=== PATIENT | female | born 1990 | race Hispanic/Latino ===

== ENCOUNTER 2017-03-28 14:49 | Inpatient (IN) | payer MEDICAID, SELFPAY ==
--- NOTE | 2017-03-28 17:43 | ULT ---
OB ULTRASOUND: 03/28/17 HISTORY: Pelvic pain. Real time images of the pelvis were obtained transabdominally. These show a single viable intrauterin e . heart rate of 163 bpm. Gestational sac measurements are 4.7 cm, corresponding to 1 0 weeks, 2 days. [place] to rump length measurements 3.9 cm, corresponding to 10 weeks, 6 days. The right adnexa is unremarkable. The left ovary is not visualized. No subchorionic bleed is visualized. DOPPLER EVALUATION WITH SPECTRAL ANALYSIS: Normal flow is shown to the right ovary. IMPRESSION: Single viable intrauterine of 10 weeks, 4 days with estimated date of delivery of 10/20/17. POS: [facility]
[2017-03-28 18:40] LABS: Bilirubin Negative (Negative); Blood, Urine Trace (Negative); Clarity CLEAR (Clear); Glucose, Urine (Dipstick) >=1000 mg/dL (Negative); Leukocyte Moderate (Negative); Nitrite Negative (Negative); Protein, Urine (Dipstick) Negative (Neg-Trace); Specific Gravity, Urine 1.012 (1.002-1.036); pH, Urine 6.5 (5.0-9.0)
[2017-03-28 18:45] LABS: Bacteria/HPF None Seen HPF (None Seen); Hyaline Casts/LPF 0-3 HYALINE CAST LPF (0-3 Hyaline); Pathc Cast-AUWi Flag 0.13 (0-2.49); RBC/HPF 0-3 HPF (0-3); WBC/HPF 21-50 HPF (0-3)
[2017-03-28 19:04] LABS: Transitional Epithelial 0-3 HPF (0-3)
[2017-03-28] MEDS ORDERED: cefTRIAXone\\ROCEPHIN 1 GM in Sodium Chloride 0.9% 100 ML IVPB SCH (19:38)
[2017-03-28 20:04] LABS: ALT (SGPT) 11 U/L (8-55); AST (SGOT) 14 U/L (5-34); Albumin 3.4 g/dL (3.5-5.0); Alkaline Phosphatase 56 U/L (40-150); Anion Gap 10 mmol/L (10-20); BUN (Urea Nitrogen) 5 mg/dL (7.0-18.7); Bilirubin, Total 0.6 mg/dL (0.2-1.2); Calc. Creatinine Clearance 0 mL/min (70-130); Calcium 9.1 mg/dL (7.8-10.44); Carbon Dioxide 25 mmol/L (22-29); Chloride 107 mmol/L (98-107); Estimated GFR-MDRD Greater than 90; Globulin 3.1 g/dL (2.4-3.5); Glucose 92 mg/dL (70-105); Protein, Total 6.5 g/dL (6.0-8.3); Sodium 138 mmol/L (136-145)
[2017-03-28 20:20] VITALS: BMI 34.0
[2017-03-28] MEDS: Sodium Chloride 0.9% 1,000 ML IV SCH (20:29)
[2017-03-28] MEDS: Acetaminophen 325 MG TAB PO PRN (22:21)
[2017-03-29] MEDS: Dextromethorphan Polistirex 30 MG/5 ML UDCUP PO PRN ×2 (00:50→14:21)
--- NOTE | 2017-03-29 01:02 | HP ---
DATE OF ADMISSION: 03/28/2017 CHIEF COMPLAINT: Back pain. HISTORY OF PRESENT ILLNESS: This is a 27-year-old female who is a at 10 weeks gestational age, who presented with 3-day history of generalized malaise, right-sided back pain and intermittent fever and chills for which she was seen outside ED. At that time, she was diagnosed with sepsis secondary to urinary tract infection with a positive UA, as well as leukocytosis and tachycardia, and was transferred to our facility. Vancomycin and Rocephin were started in the ED. She was given a bolus of 2 liters and admitted to our service. She is currently still complaining of chills and some tiredness, but otherwise denies chest pain, shortness of breath, nausea, vomiting, dysuria, urgency, vaginal bleeding, loss of fluid, contractions, or abdominal pain. PAST MEDICAL HISTORY: Noncontributory. PAST SURGICAL HISTORY: Three C-sections. ALLERGIES: No known drug allergies. MEDICATIONS: None. SOCIAL HISTORY: Denies tobacco, ethanol, or drug use. FAMILY HISTORY: Noncontributory. PHYSICAL EXAMINATION: VITAL SIGNS: Include blood pressure 121/62, pulse 107, respirations 18, temperature 98.2, satting 98% on room air. GENERAL: She is in no acute distress, resting comfortably in bed. HEENT: Eyes; no icterus or injection. Pupils equal, round, and reactive to light. Pinna is normal. Nares patent without rhinorrhea. Moist mucous membranes. No oropharyngeal erythema. CARDIOVASCULAR: Tachycardic, regular rhythm without murmur. No peripheral edema. RESPIRATORY: No increased work of breathing. Clear to auscultation bilaterally without wheezes, rales, or rhonchi. GASTROINTESTINAL: Bowel sounds positive. Nontender to palpation. No guarding or rigidity. BACK: She does have right CVA tenderness. No left CVA tenderness. GENITOURINARY: Deferred. MUSCULOSKELETAL: No deformity, contracture, or bruising. No tenderness to palpation or joint effusion. SKIN: Warm and dry without rash. NEUROLOGICAL: Cranial nerves II through XII are intact, symmetric. Motor is 5/ 5 in upper and lower extremities. Sensation intact to light touch in upper and lower extremities. PSYCHIATRIC: She is alert and oriented x3. Appropriate insight. Mood and affect normal for current medical condition. LABORATORY DATA: Include a leukocytosis of 17 by report. She has a CMP that is relatively normal. A total beta hCG of 150,000. Urine includes greater than 1000 glucose, trace blood, moderate leukocyte esterase, 250 white blood cells, and 4-6 squamous epithelial cells, had been told by outside report that she had positive nitrites, we will confirm. A ultrasound demonstrated a single viable IUP at 10 weeks and 4 days, estimated delivery date of 2017. By the two criteria given, we should probably going that she is 10 weeks and 6 days since that was a crown rump length measurement. ASSESSMENT AND PLAN: A 27-year-old female at 10 weeks and 6 days with; 1. Sepsis secondary to urinary tract infection. We will continue Rocephin, discontinue vancomycin. Await urine culture. She has no risk factors for resistances at this point. She received a bolus and can receive maintenance IV fluids overnight with discontinuation in the morning if she is doing well. Acetaminophen for pain control. We will add her on p.r.n. morphine if necessary. 2. Urinary tract infection, see above. 3. . She has high risk related to current medical complications as well as 3 previous cesareans. She also has been taking Aleve for the pain for the last several days and now she has exposure to nonsteroidal anti- inflammatory drugs in first trimester. 4. Gastrointestinal prophylaxis with diet. 5. Deep venous thrombosis prophylaxis with sequential compression devices. MTDD
[2017-03-29] MEDS: Sodium Chloride 0.9% 1,000 ML IV SCH ×3 (05:04→22:11)
[2017-03-29] MEDS: Acetaminophen 325 MG TAB PO PRN ×3 (05:13→20:05)
--- NOTE | 2017-03-29 06:18 | HP-2 ---
CODE STATUS: FULL CODE. PRIMARY CARE PHYSICIAN: Dr. Day in [facility] call. ATTENDING: Maninder Gerber MD RESIDENT: Ramses Marrufo MD HISTORIAN: The patient. TIME AND DATE OF SERVICE: 1845 hours on 03/28/2017 CHIEF COMPLAINT: Flank pain. HISTORY OF PRESENT ILLNESS: Brenda James is a 27-year-old female -0-0- 3 at approximately 10 weeks gestational age. She was transferred from [place] , sent over for a 2-day history of right flank pain, over the last 24 hours of right flank pain has worsened and the patient has also had chills and weakness. She denies any nausea or vomiting. She has tried Aleve for the pain, and this has given her some relief. The patient does not have an county or city auditor at this time and she denies any abdominal pain, vaginal bleeding or discharge. She also denies any dysuria or increased urinary frequency. Her last menstrual period was 01/24/2017. In the ER, the patient received acetaminophen, Rocephin , vancomycin, 1-liter bolus of normal saline and also had blood and urine cultures done in [place]. PAST MEDICAL HISTORY: None. PAST SURGICAL HISTORY: section x3. ALLERGIES: No known drug allergies. MEDICATIONS: None. FAMILY HISTORY: Noncontributory. SOCIAL HISTORY: The patient denies alcohol, tobacco, or drug use. REVIEW OF SYSTEMS: A 12-point review of systems including general, eyes, ENT, respiratory, CV, GI, , skin, musculoskeletal, neuro, and psych were all unremarkable with the exception of what was stated in the HPI. PHYSICAL EXAMINATION: VITAL SIGNS: Blood pressure 110/62, pulse 108, respiratory rate 62, temperature 98.0, pulse ox 97% on room air, current weight 81 kilograms. GENERAL: The patient is alert and oriented x4, in no acute distress, well- developed, well-nourished, and appropriately interactive. EYES: Pupils are equal, round, and reactive to light and accommodation. Extraocular muscles are intact. Conjunctivae within normal limits. ENT: Tympanic membranes pearly meier without bulging or erythema. Nasal mucosa and oropharynx within normal limits. NECK: Supple without lymphadenopathy or thyromegaly. CARDIOVASCULAR: Regular rate and rhythm. No murmurs or gallops. Radial and pedal pulses equal bilaterally. RESPIRATORY: Normal effort. No retractions. LUNGS: Clear to auscultation bilaterally. SKIN: Warm and dry without cyanosis or lesions. ABDOMEN: Soft, nontender. Bowel sounds x4. No mass or distention. Exquisite right CVA tenderness. No left CVA tenderness. EXTREMITIES: No clubbing, cyanosis, or edema. MUSCULOSKELETAL: Structure and tone within normal limits. Full range of motion. NEUROLOGIC: No focal deficits. Sensation within normal limits. PSYCHIATRIC: Appropriate. LABORATORY DATA: White blood cell count 17.01, hemoglobin 12.2, hematocrit 36.7 , MCV 86, 90% neutrophils, platelets 161. Beta hCG was positive. Influenza A and B were negative. UA in [place] was significant for dark and cloudy urine , moderate blood, protein 100, small leukocyte esterase, positive nitrites, trace ketones, 250 glucose, 2 to 5 red blood cells, 20-50 white blood cells, 3+ bacteria, positive squamous epithelial cells, negative bilirubin. ultrasound in [facility] showed single intrauterine at approximately 10 weeks and 4 days, making the estimated due date 10/20/2017. ASSESSMENT AND PLAN: A 27-year-old female at 10 and 4 weeks by first- trimester ultrasound today with a 2-day history of right flank pain. 1. Sepsis secondary to pyelonephritis: Right-sided, admit to [facility]. Check CMP and lactate. Urine culture done in [place]. Continue IV fluids normal saline at 120 mL an hour and continue IV Rocephin. 2. First-trimester . No care to this point. Ultrasound shows viable intrauterine consistent with 10-week and 4-day . Start vitamins. Patient needs to be set up with outpatient county or city auditor. 3. Activity: Ad niko. 4. Diet: Consistent carbohydrates. 5. Code status: FULL CODE. DISPOSITION AND LENGTH OF HOSPITAL STAY: Two days. Symptomatic medication will be provided. History and physical exam as well as management discussed with Dr. Gerber. HU
--- NOTE | 2017-03-29 08:10 | PDOC.FM ---
- Subjective Subjective: Pt complains of continued R flank pain and fever. She denies all other symptoms to include N/V or dysuria. There were no acute events over night. - Objective MAR Reviewed: Yes Vital Signs & Weight: Vital Signs (12 hours) Temp Pulse Resp BP BP 03/29/17 08:05 98.6 F 97 20 112/56 L 03/29/17 05:10 99.5 F 101 H 18 122/65 03/29/17 00:00 100.4 F H 113 H 20 129/61 03/28/17 22:20 102.8 F H 120 H 20 128/59 L Weight Weight 81.647 kg I&O: 03/28/17 03/29/17 03/30/17 06:59 06:59 06:59 Intake Total 1999 Output Total 1900 Balance 100 Result Diagrams: 03/28/17 19:33 Phys Exam - Physical Examination Constitutional: NAD HEENT: PERRLA, moist MMs, sclera anicteric Neck: no nodes, no JVD, supple, full ROM Respiratory: clear to auscultation bilateral Cardiovascular: RRR, no significant murmur Gastrointestinal: soft, no distention, positive bowel sounds R CVA tenderness Musculoskeletal: no edema, pulses present Neurological: non-focal, normal sensation Lymphatic: no nodes Psychiatric: normal affect, A&O x 3 Skin: no rash, normal turgor Dx/Plan (1) Pyelonephritis affecting Code(s): O23.00 - INFECTIONS OF KIDNEY IN , UNSPECIFIED TRIMESTER Status: Acute Qualifiers: Trimester: first trimester Qualified Code(s): O23.01 - Infections of kidney in , first trimester (2) Sepsis secondary to UTI Code(s): A41.9 - SEPSIS, UNSPECIFIED ORGANISM; N39.0 - URINARY TRACT INFECTION, SITE NOT SPECIFIED Status: Acute (3) Supervision of high risk , unspecified, first trimester Code(s): O09.91 - SUPERVISION OF HIGH RISK , UNSP, FIRST TRIMESTER Status: Acute - Plan Plan: 1. Sepsis 2/2 pyelo - On IV rocephin - Continues to fever and have periods of tachycardia - Cx are pending. Will contact [place] for results - Good PO intake. Consider stopping IVF later today. - N/V well controlled 2. 1st trimester - Will only give tylenol for fever. Pt was apparently taking NSAIDs at home. Discussed how this is not indicated dt - Pt will need outpt follow up for OB care.
[2017-03-29] MEDS ORDERED: FLU VACC QS2017-18 36 mo. & older 0.5 ML SYRINGE IM ONE (09:00)
[2017-03-29] MEDS: Prenatal Vitamin 1 TAB PO SCH (10:27)
[2017-03-29] MEDS ORDERED: cefTRIAXone\\ROCEPHIN 1 GM, Syringe 0.4 ML in Sterile Water 9.6 ML SLOW IVP SCH (13:00)
--- NOTE | 2017-03-29 15:31 | ULT ---
BILATERAL RENAL ULTRASOUND: History: Evaluate for hydronephrosis in a 10-week female. FINDINGS: The right kidney measures 10.3 cm in length and the left kidney measures 12.9 cm in length. No focal mass or hydronephrosis is seen on either side. The urinary bladder is incompletely distended with a v olume of 13.5 cc. Incidental note is made of multiple shadowing gallstones. IMPRESSION: 1. Unremarkable renal ultrasound. 2. Cholelithiasis. POS: [place]
[2017-03-29] MEDS: cefTRIAXone\\ROCEPHIN 1 GM, Syringe 0.4 ML in Sterile Water 9.6 ML SLOW IVP SCH (16:23)
[2017-03-30 05:40] LABS: #Monocytes 1.8 thou/uL (0.11-0.59); #Neutrophils 10.8 thou/uL (1.40-6.50); %Basophils 0.1 % (0.0-1.0); %Eosinophils 0.2 % (0.0-10.0); %Lymphocytes 7.7 % (21.0-51.0); %Monocytes 13.1 % (0.0-10.0); Hemoglobin 10.3 g/dL (12.0-16.0); Mean Corpuscular HGB CONC 33.3 g/dL (32.0-36.0); Mean Corpuscular Volume 93.1 fl (81.0-99.0); Mean Platelet Volume 8.7 fL (7.4-10.4); Platelet Count 176 thou/uL (130-400); RBC Distribution Width 11.6 % (11.5-14.5); Red Blood Cell (RBC) Count 3.31 mill/uL (4.20-5.40); White Blood Cell (WBC) Count 13.6 thou/uL (4.8-10.8)
[2017-03-30] MEDS: Sodium Chloride 0.9% 1,000 ML IV SCH ×3 (06:03→23:31)
[2017-03-30 06:10] LABS: Anion Gap 11 mmol/L (10-20); BUN (Urea Nitrogen) Less than 4 mg/dL (7.0-18.7); Calc. Creatinine Clearance 179 mL/min (70-130); Calcium 9.1 mg/dL (7.8-10.44); Carbon Dioxide 23 mmol/L (22-29); Chloride 105 mmol/L (98-107); Estimated GFR-MDRD Greater than 90; Glucose 90 mg/dL (70-105); Potassium 3.6 mmol/L (3.5-5.1); Sodium 135 mmol/L (136-145)
--- NOTE | 2017-03-30 06:23 | PDOC.FM ---
- Subjective Subjective: Pt is feeling better today, however still complains of some right sided flank pain. N/V has been under control and she is taking PO without issue. She denies other symptoms in ROS. There were no acute events over night. - Objective MAR Reviewed: Yes Vital Signs & Weight: Vital Signs (12 hours) Temp Pulse Resp BP 03/30/17 00:42 98.5 F 93 20 113/59 L 03/29/17 19:55 100.1 F H 114 H 24 H 112/59 L Weight Weight 81.647 kg I&O: 03/28/17 03/29/17 03/30/17 06:59 06:59 06:59 Intake Total 1999 4545 Output Total 1900 3400 Balance 100 1145 Result Diagrams: 03/30/17 05:13 03/30/17 05:13 Phys Exam - Physical Examination Constitutional: NAD HEENT: PERRLA, moist MMs Neck: no nodes, no JVD, supple, full ROM Respiratory: clear to auscultation bilateral Cardiovascular: RRR, no significant murmur Gastrointestinal: soft, no distention, positive bowel sounds R CVAT Musculoskeletal: no edema Neurological: non-focal Lymphatic: no nodes Psychiatric: normal affect, A&O x 3 Skin: no rash Dx/Plan (1) Pyelonephritis affecting Code(s): O23.00 - INFECTIONS OF KIDNEY IN , UNSPECIFIED TRIMESTER Status: Acute Qualifiers: Trimester: first trimester Qualified Code(s): O23.01 - Infections of kidney in , first trimester (2) Sepsis secondary to UTI Code(s): A41.9 - SEPSIS, UNSPECIFIED ORGANISM; N39.0 - URINARY TRACT INFECTION, SITE NOT SPECIFIED Status: Acute (3) Supervision of high risk , unspecified, first trimester Code(s): O09.91 - SUPERVISION OF HIGH RISK , UNSP, FIRST TRIMESTER Status: Acute - Plan Plan: 1. Sepsis 2/2 pyelo - On IV rocephin - Continues to have periods of fever and tachycardia as expected with pyelo - Cx are negative at 24 hours. - Good PO intake. Consider stopping IVF later today. - N/V well controlled - Renal US was WNL, incidental asymptomatic cholelithiasis - Consider moving to PO meds tomorrow 2. 1st trimester - Will only give tylenol for fever. Pt was apparently taking NSAIDs at home. Discussed how this is not indicated dt - Pt will need outpt follow up for OB care.
[2017-03-30] MEDS: Prenatal Vitamin 1 TAB PO SCH (07:24)
[2017-03-30] MEDS: Acetaminophen 325 MG TAB PO PRN ×3 (07:24→23:34)
[2017-03-30] MEDS: Dextromethorphan Polistirex 30 MG/5 ML UDCUP PO PRN ×2 (07:25→20:22)
--- NOTE | 2017-03-30 13:27 | ADD-PRG ---
DATE: 03/30/2017 This is an addendum to the note of Dr. Mook Parker. Ms. James is looking and feeling much better. She still has some mild flank pain and still runnin g temperature to 101 degrees as of 8:00 this morning. Her urine culture did grow E. coli sensitive t o most antibiotics including the cephalosporins, which will be continued for now. I suggest we keep her until she is afebrile for at least 24 hours given that she is .
[2017-03-30] MEDS: cefTRIAXone\\ROCEPHIN 1 GM, Syringe 0.4 ML in Sterile Water 9.6 ML SLOW IVP SCH (16:45)
[2017-03-31 05:03] VITALS: TEMP 98.7
--- NOTE | 2017-03-31 06:05 | PDOC.FM ---
- Subjective Subjective: Pt feels better today. There is some r flank pain, however it is improving. She denies fever, chills, n/v, and all other symptoms in ROS. There were no acute events over night. - Objective MAR Reviewed: Yes Vital Signs & Weight: Vital Signs (12 hours) Temp Pulse Resp BP 03/31/17 05:01 98.7 F 95 20 118/66 03/30/17 23:40 100.2 F H 100 20 122/66 03/30/17 19:50 98.4 F 91 20 128/60 Weight Weight 81.647 kg I&O: 03/29/17 03/30/17 03/31/17 06:59 06:59 06:59 Intake Total 2000 7091 2460 Output Total 1900 7400 4050 Balance 100 -309 -1590 Result Diagrams: 03/30/17 05:13 03/30/17 05:13 <Mook Parker - Last Filed: 03/31/17 06:04> - Objective Vital Signs & Weight: Vital Signs (12 hours) Temp Pulse Resp BP 03/31/17 11:10 98.7 F 03/31/17 07:35 98.7 F 91 20 118/57 L 03/31/17 05:01 98.7 F 95 20 118/66 03/30/17 23:40 100.2 F H 100 20 122/66 Weight Weight 81.647 kg I&O: 03/30/17 03/31/17 04/01/17 06:59 06:59 06:59 Intake Total 7091 4460 Output Total 7400 5050 Balance -309 -590 Result Diagrams: 03/30/17 05:13 03/30/17 05:13 <Roberto Carlos Barron - Last Filed: 03/31/17 11:33> Phys Exam - Physical Examination Constitutional: NAD HEENT: PERRLA, moist MMs Neck: no nodes, no JVD Respiratory: clear to auscultation bilateral Cardiovascular: RRR, no significant murmur Gastrointestinal: soft Mild right CVAT Musculoskeletal: no edema Neurological: non-focal Lymphatic: no nodes Psychiatric: normal affect, A&O x 3 Skin: no rash <Mook Parker - Last Filed: 03/31/17 06:04> Dx/Plan (1) Pyelonephritis affecting Code(s): O23.00 - INFECTIONS OF KIDNEY IN , UNSPECIFIED TRIMESTER Status: Acute QualifierTitle: Trimester: first trimester Qualified Code(s): O23.01 - Infections of kidney in , first trimester (2) Sepsis secondary to UTI Code(s): A41.9 - SEPSIS, UNSPECIFIED ORGANISM; N39.0 - URINARY TRACT INFECTION, SITE NOT SPECIFIED Status: Acute (3) Supervision of high risk , unspecified, first trimester Code(s): O09.91 - SUPERVISION OF HIGH RISK , UNSP, FIRST TRIMESTER Status: Acute - Plan Plan: 1. Sepsis 2/2 pyelo - On IV rocephin - No fever in past 24 hours - Cx pos for e coli - Good PO intake. Consider stopping IVF later today. - N/V well controlled - Renal US was WNL, incidental asymptomatic cholelithiasis - Switch to PO omnicef today 2. 1st trimester - Will only give tylenol for fever. Pt was apparently taking NSAIDs at home. Discussed how this is not indicated dt - Pt will need outpt follow up for OB care. Dispo: ready for dc today <Mook Parker - Last Filed: 03/31/17 06:04> Attending Addendum - Attending Addendum I personally evaluated the patient and discussed the management with Dr. Parker. I agree with the History, Examination, Assessment and Plan documented above with any addition or exceptions noted below. V/S normal stable. Feels well. No CVATenderness on my exam. D/C home on Cefdinir. <Roberto Carlos Barron - Last Filed: 03/31/17 11:33>
[2017-03-31] MEDS: Sodium Chloride 0.9% 1,000 ML IV SCH (06:25)
[2017-03-31 08:00] VITALS: BP 118/57
[2017-03-31] MEDS: Prenatal Vitamin 1 TAB PO SCH (08:56)
[2017-03-31] MEDS ORDERED: Cefdinir 300 MG CAP PO SCH (09:00)
--- NOTE | 2017-03-31 14:00 | DIS-2 ---
DATE OF ADMISSION: 03/28/2017 DATE OF DISCHARGE: 03/31/2017 RESIDENT: Mook Parker DO. ADMITTING ATTENDING: Maninder Gerber MD DISCHARGE ATTENDING: Roberto Carlos Barron M.D CONSULTATIONS: None. PROCEDURES: None. PRIMARY DIAGNOSIS: Sepsis secondary to pyelonephritis during her diagnosis of first trimester . DISCHARGE MEDICATIONS: Cefdinir 300 mg p.o. b.i.d. x7 days. DISCONTINUED MEDICATIONS: None. HOSPITAL COURSE: The patient was admitted with sepsis from a presumed pyelonephritis. Over the course of hospitalization, she was treated with IV Rocephin and improved symptomatically. She had periodic fevers with associated tachycardia during the first 2 days of hospitalization. During the final day of hospitalization, she had no fever or tachycardia. At no point was she unable to take p.o.; however, she was given maintenance fluids during the entirety of her hospitalization. On the day of discharge, the patient was moved over to Omnicef p.o. per sensitivities for some days for a total of 10 days of treatment. Additionally, as noted, the patient does not currently have obstetric care. It was recommended to her that she find provider for this care for which he says that she will see someone in [place]. DISCHARGE INSTRUCTIONS: 1. Location: Home. 2. Diet: Regular. 3. Activity: Ad-niko. 4. Follow up with PCP within a week and with an obstetric provider within 1 week. HU
== END 2017-03-31 12:30 | disposition home health service (06) | DRG 781 ==
LOC: ERS 14:49 → 3SW 19:15
PROVIDERS: ADMIT Emergency Medicine; ATTEND Emergency Medicine
DX: O98.811 Other maternal infectious and parasitic diseases complicating pregnancy, first trimester (principal); A41.9 Sepsis, unspecified organism; N10 Acute pyelonephritis; Z3A.10 10 weeks gestation of pregnancy
CPT/HCPCS: 36415; 51701; 76770; 76815; 80048; 80053; 81003; 81015; 83036; 83605; 84702; 85025; 87086; 90471; 90682; A4216; A4353; G0008; J0696; Q2036